=== PATIENT | female | born 1930 | race Caucasian/White ===

== ENCOUNTER 2018-08-23 09:19 | Day surgery (SDC) | payer MEDICARE, MEDICAID ==
[~2018-08-23] VITALS: Ht 147.3 cm; Wt 52.7 kg
[~2018-08-23 09:19] MED LIST: AMLO-512 PO; GLYB5 PO
[2018-08-23] MEDS ORDERED: SODIUM CHLORIDE 0.9% 1,000 ML IV ONE ×2 (09:42→11:00)
[2018-08-23 10:34] LABS: GLUCOMETER DEV NAME(LOC) SDS.; GLUCOSE,POINT OF CARE 84 MG/DL (70-110)
[2018-08-23] MEDS ORDERED: MIDAZOLAM HCL 2 MG/2 ML VIAL IVP ONE (12:00)
[2018-08-23] MEDS ORDERED: PROPOFOL 1% 20 ML VIAL IVP ONE (12:00)
[2018-08-23] MEDS ORDERED: LIDOCAINE/PF 2% 5 ML VIAL INJ ONE (12:00)
== END 2018-08-23 14:30 | disposition home or self-care (01) ==
LOC: SURGERY 09:19
PROVIDERS: ATTEND Internal Medicine Gastroenterology
DX: D12.8 Benign neoplasm of rectum (principal); E11.9 Type 2 diabetes mellitus without complications; E78.5 Hyperlipidemia, unspecified; Z79.899 Other long term (current) drug therapy; I10 Essential (primary) hypertension; Z98.890 Other specified postprocedural states
CPT/HCPCS: 45380; 82962; 88305; 88313; C1769; J2250; J2704; J3490; J7030